=== PATIENT | female | born 1975 | race Caucasian/White ===

== ENCOUNTER 2023-11-13 15:55 | Outpatient (CLI) | payer OTHER, SELFPAY ==
--- NOTE | 2023-11-13 09:15 | DI.RAD_ITS ---
Exam(s) XR KNEE RT 3V AP,LAT,FRANCISCA EXAM: XR KNEE RT 3V AP,LAT,FRANCISCA CLINICAL HISTORY: Right anterior knee pain. TECHNIQUE: 2D digital imaging was performed of the right knee. Four views obtained. AP, lateral and PA tunnel views were obtained. COMPARISON: CR KNEES BILAT MERCHANT VIEW from 12/31/2008 CR RIGHT KNEE COMPLETE from 09/14/2016 FINDINGS: BONES: No acute fracture is present. No bony destructive lesion is seen. Postsurgical lucency is seen in the patella. JOINTS: The knee is normally aligned. There is mild narrowing of the medial femoral tibial joint. No joint effusion or loose body is identified. SOFT TISSUE: Normal. IMPRESSION: Mild joint space narrowing in the medial knee. DATA REPOSITORY: RADIATION DOSE DELIVERED:
== END 2023-11-13 15:56 | disposition home or self-care (01) ==
LOC: DIORS 15:56
PROVIDERS: Visit Provider Student in an Organized Health Care Education/Training Program
DX: M25.561 Pain in right knee (principal)
CPT/HCPCS: 73562